=== PATIENT | female | born 1975 | race Caucasian/White ===

== ENCOUNTER → 2016-05-16 | Outpatient (CLI) | payer OTHER ==
--- NOTE | 2016-05-17 14:58 | Diagnostic Imaging Report ---
PA and lateral views of the chest Indication: Cough Findings: The lungs are clear. The heart size is normal. There is no effusion or pneumothorax The mediastinum and alanna appear unremarkable. Impression: Unremarkable study. Dictated by: Dictated on workstation # [id number]
== END ==
LOC: RAD 10:22
PROVIDERS: ATTEND Nurse Practitioner Family
DX: R05 Cough (principal); B96.0 Mycoplasma pneumoniae [M. pneumoniae] as the cause of diseases classified elsewhere
CPT/HCPCS: 71020

== ENCOUNTER → 2018-04-12 | Outpatient (CLI) | payer BC, OTHER ==
--- NOTE | 2018-04-12 18:13 | Diagnostic Imaging Report ---
EXAMINATION: Pelvic ultrasound. INDICATION: Abnormal uterine bleeding. COMPARISON: There are no prior studies available for comparison. FINDINGS: The uterus is nongravid and not enlarged measuring 7.8 x 5.0 x 4.4 cm. The endometrial lining is not abnormally thickened. There is a 2.4 x 1.9 x 1.9 cm area of slightly altered echogenicity in the uterine fundus. This finding is suspicious for a fibroid. Both ovaries were identified. There is good blood flow to each ovary, and there is no sign of torsion. There is a 1.3 x 1.3 x 1.3 cm benign-appearing cyst associated with the right ovary. There are a few subcentimeter follicles on the left ovary. There is no solid pelvic mass or free fluid collection evident. IMPRESSION: 1. There is no acute pelvic abnormality identified. 2. The endometrial lining does not seem to be thickened. 3. The 2.4 x 1.9 x 1.9 cm area of altered echogenicity within the uterine fundus is suspicious for a fibroid. 4. There is a small cyst associated with the right ovary. Dictated by: Dictated on workstation # [id number]
--- NOTE | 2018-04-15 09:02 | Diagnostic Imaging Report ---
Indication: Routine screening. Comparison is made with prior study from 01/20/2016 and 09/14/2014. 2-D and 3-D bilateral screening mammography was performed with CAD. Both breasts are heterogeneously dense, limiting the sensitivity of mammography. The parenchymal pattern is stable. No mass or malignant appearing microcalcifications are seen. The axillae are unremarkable. Impression: BI-RADS category 1. No mammographic features suspicious for malignancy are identified. ACR BI-RADS Category 1: Negative. Result letter will be mailed to the patient. Note: At least 10% of breast cancer is not imaged by mammography. Dictated by: Dictated on workstation # [id number]
== END ==
LOC: RAD 15:10
PROVIDERS: ATTEND Obstetrics & Gynecology
DX: Z12.31 Encounter for screening mammogram for malignant neoplasm of breast (principal); N83.201 Unspecified ovarian cyst, right side; N94.19 Other specified dyspareunia
CPT/HCPCS: 76830; 76856; 77067

== ENCOUNTER 2018-04-17 13:27 | Outpatient (RCR) | payer BC ==
[2018-03-29] MEDS: IRON SUCROSE 200 MG/10 ML (VENOFER) VIAL IV SCH (13:47)
[2018-03-29 14:50] VITALS: BP 109/75
[2018-04-03] MEDS: IRON SUCROSE 200 MG/10 ML (VENOFER) VIAL IV SCH (13:21)
[2018-04-03 13:22] VITALS: BP 107/80
[2018-04-12] MEDS: IRON SUCROSE 200 MG/10 ML (VENOFER) VIAL IV SCH (14:21)
[2018-04-12 17:42] VITALS: BP 108/78
[~2018-04-17] VITALS: Ht 165.1 cm; Wt 70.3 kg
[2018-04-17 13:30] VITALS: BP 127/81
[2018-04-17] MEDS: IRON SUCROSE 200 MG/10 ML (VENOFER) VIAL IV SCH (13:39)
[2018-05-02] MEDS ORDERED: LEVO150T6 PO (10:05)
[2018-05-02] MEDS ORDERED: DICY10CA12 PO (10:05)
[2018-05-02] MEDS ORDERED: NAPR-915 PO (10:05)
[2018-05-02] MEDS ORDERED: ESCI10TA55 PO (10:05)
[2018-05-02] MEDS ORDERED: ALPR1TAB7 PO (10:05)
[2018-05-02] MEDS ORDERED: MULT-884 PO (10:05)
[2018-05-09] MEDS ORDERED: ceFAZolin INJECTION 1,000 MG VIAL ONE (11:56)
[2018-05-09] MEDS ORDERED: metroNIDAZOLE 500MG/100ML IVPB 100 ML ONE (11:57)
[2018-05-09] MEDS ORDERED: NS (IVPB) 50 ML ONE (11:57)
[2018-05-09] MEDS ORDERED: SIME80TA16 PO (19:21)
[2018-05-09] MEDS ORDERED: HYDR-34 PO (19:21)
[2018-05-09] MEDS ORDERED: IBUP-844 PO (19:21)
[2018-05-09] MEDS ORDERED: DOCU100C37 PO (19:21)
== END 2018-06-27 | disposition home or self-care (01) ==
LOC: SDC 13:27
PROVIDERS: ATTEND Family Medicine
DX: D50.8 Other iron deficiency anemias (principal); R53.83 Other fatigue; N94.6 Dysmenorrhea, unspecified
CPT/HCPCS: 96365

== ENCOUNTER 2018-05-02 09:06 | Outpatient (CLI) | payer BC ==
[~2018-05-02] VITALS: Ht 165.1 cm; Wt 72.6 kg
[2018-05-02 09:18] VITALS: BP 112/80
[2018-05-02] MEDS ORDERED: ESCI10TA55 PO (10:05)
[2018-05-02] MEDS ORDERED: DICY10CA12 PO (10:05)
[2018-05-02] MEDS ORDERED: NAPR-915 PO (10:05)
[2018-05-02] MEDS ORDERED: MULT-884 PO (10:05)
[2018-05-02] MEDS ORDERED: ALPR1TAB7 PO (10:05)
[2018-05-02] MEDS ORDERED: LEVO150T6 PO (10:05)
[2018-05-02 10:06] LABS: BASOPHILS % (AUTO) 0 % (0-10); EOSINOPHILS % (AUTO) 0 % (0-10); HEMATOCRIT 41 % (35-52); HEMOGLOBIN 12.7 G/DL (11.5-16.0); LYMPHOCYTES # (AUTO) 1.8 X 10^3 (1.0-4.0); LYMPHOCYTES % (AUTO) 39 % (12-44); MEAN CORPUSCULAR HEMOGLOBIN 23 PG (25-34); MEAN CORPUSCULAR HGB CONC 31 G/DL (32-36); MEAN CORPUSCULAR VOLUME 75 FL (80-99); MEAN PLATELET VOLUME 11.5 FL (7.4-10.4); MONOCYTES # (AUTO) 0.5 X 10^3 (0.0-1.0); MONOCYTES % (AUTO) 11 % (0-12); NEUTROPHILS # (AUTO) 2.4 X 10^3 (1.8-7.8); NEUTROPHILS % (AUTO) 50 % (42-75); PLATELET COUNT 262 10^3/uL (130-400); RED BLOOD COUNT 5.46 10^6/uL (4.35-5.85); RED CELL DISTRIBUTION WIDTH 28.4 % (10.0-14.5); WHITE BLOOD COUNT 4.7 10^3/uL (4.3-11.0)
== END 2018-05-02 09:50 | disposition home or self-care (01) ==
LOC: PREOP 09:06
PROVIDERS: ATTEND Obstetrics & Gynecology
DX: Z01.812 Encounter for preprocedural laboratory examination (principal); Z11.2 Encounter for screening for other bacterial diseases; D25.9 Leiomyoma of uterus, unspecified; D62 Acute posthemorrhagic anemia
CPT/HCPCS: 36415; 85025; 86850; 86900; 86901; 87081

== ENCOUNTER 2018-05-09 10:59 | Day surgery (SDC) | payer BC ==
[~2018-05-09] VITALS: Ht 165.1 cm; Wt 72.6 kg
[~2018-05-09 10:59] MED LIST: ALPR1TAB7 PO; DICY10CA12 PO; ESCI10TA55 PO; LEVO150T6 PO; MULT-884 PO; NAPR-915 PO
--- OUTSIDE RECORDS SUMMARY | 2018-05-09 11:02 | XMS REPORT ---
Author Author JAZZ SEARS Organization [facility] Address [address] [place] [address] Care Team Providers Care Mineral Economist Name Role Phone JAZZ SEARS Unavailable PROBLEMS Type Condition ICD9-CM Code ROI45-CT Code Onset Dates Condition Status SNOMED Code Assessment Bronchitis J40 Apr, Active [id number] ALLERGIES Substance Reaction Event Type Date Status N.K.D.A. Unknown Non Drug Allergy Apr, Unknown SOCIAL HISTORY No smoking Hx information available PLAN OF CARE VITAL SIGNS Height 65 in 2016-04-21 Weight 172 lbs 2016-04-21 Heart Rate 98 bpm 2016-04-21 Respiratory Rate 18 2016-04-21 BMI 28.62 kg/m2 2016-04-21 Blood pressure systolic 134 mmHg 2016-04-21 Blood pressure diastolic 88 mmHg 2016-04-21 MEDICATIONS Medication Instructions Dosage Frequency Start Date End Date Duration Status Azithromycin 250 MG Orally Once a day 2 tablets on the first day, then 1 tablet daily for 4 days 24h Apr, Apr, 5 day(s) Active Cephalexin 500 MG Orally Twice a day 1 capsule 12h Active Levothyroxine Sodium 150 MCG Orally Once a day 1 tablet on an empty stomach in the morning 24h Active Promethazine-Codeine 6.25-10 MG/5ML Orally every 6 hrs 5 ml as needed 6h Apr, Apr, 5 days Active PredniSONE 20 MG Orally Once a day 2 tablet 24h Apr, Apr, 5 days Active RESULTS No Results PROCEDURES Procedure Date Ordered Related Diagnosis Body Site Office Visit, Est Pt., Level 3 Apr 21, 2016 IMMUNIZATIONS No Known Immunizations
--- OUTSIDE RECORDS SUMMARY | 2018-05-09 11:03 | XMS REPORT | Continuity of Care Document ---
Author Author [facility] Organization [facility] Address Unknown Phone Unavailable Allergies Active Description Code Type Severity Reaction Onset Reported/Identified Relationship to Patient Clinical Status Yes Penicillins [id number] Drug Allergy Unknown N/A 03/29/2018 Yes ciprofloxacin [id number] Drug Allergy Unknown N/A 05/02/2018 Medications There is no data. Problems Date Dx Coded Attending Type Code Diagnosis Diagnosed By 10/28/2014 MARI SIMON, MICHELLE Reynolds Ot 611.71 10/28/2014 MICHELLE GUERRA MD Ot V16.3 01/21/2016 ROBYN SIMON, DIANA Corbett Ot Z12.31 ENCNTR SCREEN MAMMOGRAM FOR MALIGNANT NE 05/16/2016 IDANA CARLSON MD Ot Z12.31 ENCNTR SCREEN MAMMOGRAM FOR MALIGNANT NE 05/16/2016 DIANA CARLSON MD Ot Z12.31 ENCNTR SCREEN MAMMOGRAM FOR MALIGNANT NE 05/17/2016 ANA M SHIELDS CUTTING AND SPLICING SUPERVISOR Ot B96.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 05/17/2016 ANA M SHIELDS CUTTING AND SPLICING SUPERVISOR Ot R05 COUGH 03/29/2018 DIANA CARLSON MD Ot Z12.31 ENCNTR SCREEN MAMMOGRAM FOR MALIGNANT NE 03/29/2018 ANA M SHIELDS CUTTING AND SPLICING SUPERVISOR Ot 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.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 03/29/2018 ANA M SHIELDS CUTTING AND SPLICING SUPERVISOR Ot R05 COUGH 04/03/2018 CARI MELCHOR MD Ot D50.8 OTHER IRON DEFICIENCY ANEMIAS 04/03/2018 CARI MELCHOR MD Ot N94.6 DYSMENORRHEA, UNSPECIFIED 04/03/2018 CARI MELCHOR MD Ot R53.83 OTHER FATIGUE 04/03/2018 CARI MELCHOR MD Ot D50.8 OTHER IRON DEFICIENCY ANEMIAS 04/03/2018 CARI MELCHOR MD Ot N94.6 DYSMENORRHEA, UNSPECIFIED 04/03/2018 CARI MELCHOR MD Ot R53.83 OTHER FATIGUE 04/12/2018 CARI MELCHOR MD, Ot D50.8 OTHER IRON DEFICIENCY ANEMIAS 04/12/2018 CARI MELCHOR MD, Ot N94.6 DYSMENORRHEA, UNSPECIFIED 04/12/2018 CARI MELCHOR MD, Ot R53.83 OTHER FATIGUE 04/17/2018 CARI MELCHOR MD, Ot D50.8 OTHER IRON DEFICIENCY ANEMIAS 04/17/2018 CARI MELCHOR MD, Ot N94.6 DYSMENORRHEA, UNSPECIFIED 04/17/2018 CARI MELCHOR MD, Ot R53.83 OTHER FATIGUE 04/25/2018 FENECH DINESH APARICIO S Ot N83.201 UNSPECIFIED OVARIAN CYST, RIGHT SIDE 04/25/2018 FENECH DINESH APARICIO S Ot N94.19 OTHER SPECIFIED DYSPAREUNIA 04/25/2018 DINESH BOLDEN DO S Ot Z12.31 ENCNTR SCREEN MAMMOGRAM FOR MALIGNANT NE 04/29/2018 CARI MELCHOR MD, Ot D50.8 OTHER IRON DEFICIENCY ANEMIAS 04/29/2018 CARI MELCHOR MD, Ot N94.6 DYSMENORRHEA, UNSPECIFIED 04/29/2018 CARI MELCHOR MD, Ot R53.83 OTHER FATIGUE Procedures There is no data. Results Test Result Range Thyroid Stimulating Hormone - 04/11/16 08:15 TSH 0.22 mIU/mL 0.32-5.00 Methicillin resistant Staphylococcus aureus (MRSA) screening culture - 09:39 Methicillin resistant Staphylococcus aureus (MRSA) screening culture NEG NRG Complete blood count (CBC) with automated white blood cell (WBC) differential - 05/02/18 09:45 Blood leukocytes automated count (number/volume) 4.7 10*3/uL 4.3-11.0 Blood erythrocytes automated count (number/volume) 5.46 10*6/uL 4.35-5.85 Venous blood hemoglobin measurement (mass/volume) 12.7 g/dL 11.5-16.0 Blood hematocrit (volume fraction) 41 % 35-52 Automated erythrocyte mean corpuscular volume 75 [foz_us] 80-99 Automated erythrocyte mean corpuscular hemoglobin (mass per erythrocyte) 23 pg 25-34 Automated erythrocyte mean corpuscular hemoglobin concentration measurement ( mass/volume) 31 g/dL 32-36 Automated erythrocyte distribution width ratio 28.4 % 10.0-14.5 Automated blood platelet count (count/volume) 262 10*3/uL 130-400 Automated blood platelet mean volume measurement 11.5 [foz_us] 7.4-10.4 Automated blood neutrophils/100 leukocytes 50 % 42-75 Automated blood lymphocytes/100 leukocytes 39 % 12-44 Blood monocytes/100 leukocytes 11 % 0-12 Automated blood eosinophils/100 leukocytes 0 % 0-10 Automated blood basophils/100 leukocytes 0 % 0-10 Blood neutrophils automated count (number/volume) 2.4 10*3 1.8-7.8 Blood lymphocytes automated count (number/volume) 1.8 10*3 1.0-4.0 Blood monocytes automated count (number/volume) 0.5 10*3 0.0-1.0 Automated eosinophil count 0.0 10*3/uL 0.0-0.3 Automated blood basophil count (count/volume) 0.0 10*3/uL 0.0-0.1 Blood type T Indirect antibody screen panel - 05/02/18 09:45 ABO+Rh group OP NRG Transfusion band number [id number] NRG Blood group antibody screen NEGATIVE NRG Encounters ACCT No. Visit Date/Time Discharge Status Pt. Type Provider Facility Loc./Unit Complaint [id number] 05/09/2018 09:00:00 05/09/2018 09:00:00 CAN Preadmit DINESH BOLDEN DO [facility] ABN UTERINE BLEEDING; FIBROID UTERUS,ANEMIA [id number] 05/02/2018 09:06:00 05/02/2018 09:50:00 DIS Outpatient DINESH BOLDEN DO [facility] PREOP ROBOTIC HYSTERECTOMY [id number] 04/17/2018 13:27:00 04/17/2018 23:59:59 CLS Outpatient CARI MELCHOR MD [facility] ANEMIAS D50.8,FATIGUE R53.83 [id number] 04/12/2018 15:10:00 04/12/2018 23:59:59 CLS Outpatient DINESH BOLDEN DO [facility] RAD SCREENING [id number] 05/16/2016 10:22:00 05/16/2016 23:59:59 CLS Outpatient ANA M SHIELDS [facility] RAD MYCOPLASMA,COUGH [id number] 01/20/2016 15:02:00 01/20/2016 23:59:59 CLS Outpatient DIANA CARLSON MD [facility] RAD SCREENING [id number] 09/14/2014 14:20:00 09/14/2014 23:59:59 CLS Outpatient MICHLELE GUERRA MD [facility] RAD [id number] 04/11/2016 10:14:00 04/11/2016 23:59:00 DIS Outpatient DIANA CARLSON
[2018-05-09] MEDS ORDERED: LACTATED RINGERS 1,000 ML IV ONE (11:04)
[2018-05-09] MEDS ORDERED: FAMOTIDINE 20MG/2ML IV (PEPCID) IV ONE (11:15)
[2018-05-09] MEDS ORDERED: metroNIDAZOLE 500MG/100ML IVPB 100 ML IV ONE (11:15)
[2018-05-09] MEDS ORDERED: MIDAZOLAM 2 MG/2 ML (VERSED) VIAL IV ONE (11:15)
[2018-05-09] MEDS ORDERED: ceFAZolin INJECTION 1,000 MG in NS (IVPB) 50 ML IV ONE (11:15)
[2018-05-09] MEDS: LACTATED RINGERS 1,000 ML IV PRN ×2 (12:20→14:35)
[2018-05-09] MEDS ORDERED: BUPIVACAINE 0.25% 30 ML (SENSORCAINE) VIAL ONE (12:48)
--- NOTE | 2018-05-09 12:56 | Progress Note-Pre Operative ---
Pre-Operative Progress Note H&P Reviewed The H&P was reviewed, patient examined and no changes noted. Date Seen by Provider: May 09, 2018 Time Seen by Provider: 12:55 Date H&P Reviewed: May 09, 2018 Time H&P Reviewed: 12:55 Pre-Operative Diagnosis: AUB Fibroid uterus DINESH BOLDEN DO May 09, 2018 12:56 pm
[2018-05-09] MEDS ORDERED: proPOfol 200 MG/20 ML (DIPRIVAN) VIAL IV ONE (13:00)
[2018-05-09] MEDS ORDERED: LIDOCAINE PF 2% 5 ML (XYLOCAINE) VIAL ONE (13:00)
[2018-05-09] MEDS ORDERED: ROCURONIUM 10 MG/ML 5 ML SYRINGE IV ONE (13:00)
[2018-05-09] MEDS ORDERED: SEVOFLURANE (ULTANE) 15 ML INHAL SOLN ONE ×5 (13:00→14:47)
[2018-05-09] MEDS ORDERED: MIDAZOLAM 2 MG/2 ML (VERSED) VIAL ONE (13:01)
[2018-05-09] MEDS ORDERED: fentaNYL INJECTION 100 MCG/2 ML AMP ONE (13:01)
[2018-05-09] MEDS ORDERED: DEXAMETHASONE 10 MG/ML (DECADRON) 1 ML VIAL ONE (13:08)
[2018-05-09] MEDS ORDERED: ONDANSETRON 4 MG/2 ML (SDV) Z0FRAN ONE (13:08)
[2018-05-09] MEDS ORDERED: DOCUSATE SODIUM 100 MG (COLACE) CAP PO PRN (13:45)
[2018-05-09] MEDS ORDERED: SIMETHICONE 80 MG (MYLICON) CHEW PO PRN (13:45)
[2018-05-09] MEDS ORDERED: ANTACID SUSP 30 ML UDC (MYLANTA) PO PRN (13:45)
[2018-05-09] MEDS ORDERED: HYDROmorphone 2 MG/ML VIAL (DILAUDID) IV PRN (13:45)
[2018-05-09] MEDS ORDERED: ZOLPIDEM 5 MG (AMBIEN) TAB PO PRN (13:45)
[2018-05-09] MEDS ORDERED: CHLORASEPTIC LOZENGE MM PRN (13:45)
[2018-05-09] MEDS ORDERED: ONDANSETRON 4 MG/2 ML (SDV) Z0FRAN IV PRN (13:45)
[2018-05-09] MEDS ORDERED: NEOSTIGMINE 1 MG/ML 5 ML SYRINGE ONE (14:46)
[2018-05-09] MEDS ORDERED: GLYCOPYRROLATE 0.2 MG/ML (ROBINUL) 2 ML VIAL ONE (14:46)
[2018-05-09] MEDS ORDERED: RT-ALBUTEROL SULF 2.5 MG/3 ML PRE-MIX VIAL ONE (14:58)
[2018-05-09] MEDS ORDERED: RT-ALBUTEROL SULF 2.5 MG/3 ML PRE-MIX VIAL INH ONE (15:15)
[2018-05-09] MEDS ORDERED: morphine INJ 10 MG/ML 1ML (SYR OR VIAL) IVP ONE (15:15)
[2018-05-09] MEDS ORDERED: PROMETHAZINE INJ 25 MG/ML (PHENERGAN) AMP IVP ONE (15:15)
[2018-05-09] MEDS ORDERED: ONDANSETRON 4 MG/2 ML (SDV) Z0FRAN IVP PRN (15:15)
[2018-05-09] MEDS ORDERED: HYDROmorphone 2 MG/ML VIAL (DILAUDID) IV ONE (15:15)
[2018-05-09] MEDS ORDERED: MEPERIDINE (DEMEROL) INJ 50 MG/ML IVP ONE (15:15)
[2018-05-09] MEDS: KETOROLAC 30 MG/ML VIAL IV PRN ×2 (15:17→21:02)
[2018-05-09 16:05] VITALS: BP 131/73
[2018-05-09] MEDS: LACTATED RINGERS 1,000 ML IV SCH ×2 (18:14→21:32)
--- NOTE | 2018-05-09 19:15 | Operative Report ---
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 She was placed in the dorsal lithotomy position, prepped and draped in normal sterile fashion. A timeout was performed. A Person catheter was placed using sterile technique. A weighted speculum was inserted into the patient's vagina. A right angle retractor was used to visualize the cervix, which was grasped at 12 o'clock position using a long Allis clamp. I then placed an #0 Vicryl suture to the anterior lip of the cervix and removed the Allis clamp. I used the suture as my retraction point. I then gently sound the uterine cavity depth, which was found to 8 cm. I then selected an 8 cm Alberta uterine manipulator tip and a 3.5 cm colpotomy ring. I assembled the Alberta manipulator and advanced the manipulator tip into the uterus deployed into the balloon and advanced the colpotomy ring around the vaginal fornix. Excellent uterine manipulation is appreciated on bimanual examination after this was done. I then performed a change of gloves. I took my attention to the abdomen where infraumbilically I infiltrated this area using 0.25% Marcaine, making 8 mm incision and directed Veress needle through the incision until intraperitoneal placement was confirmed using a saline drop test. I then proceeded with insufflation using CO2 gas and opening pressure of 4 mmHg was note. I proceeded to maximum pressure of 15 mmHg, at which point I removed the Veress needle and introduced an 8 mm blunt da Carina camera trocar. Once this was in place, I am able to confirm a trocar placement using the da Carina laparoscope. I then had the patient placed in steep Trendelenburg after briefly scanning the upper abdominal anatomy which was found to be normal. Once in steep Trendelenburg, I am able to visualize all of the anatomy necessary to proceed with the procedure as planned. I then placed two lateral trocars approximately 8 to 10 cm lateral to my infraumbilical trocar. The skin was infiltrated using 0.25% Marcaine, 8 mm incisions were made and the trocars were both placed under direct visualization of the laparoscope. Once the trocars were in place, I bring in the da Carina robot and docked in the appropriate fashion placing the monopolar cate in the right hand and a da Carina vessel sealer in the left hand. I then took my place at the [employer] operative console and performed the following dissection bilaterally starting at the uteroovarian ligament, bipolar cauterized and transected using the vessel sealer. I then created a window in the mesosalpinx using the monopolar cate and took this laterally using the vessel sealer amputating the fallopian tube from its blood supply. I then grasped the round ligament, bipolar cauterized and transected using the vessel sealer and then I am able to grasp the entire broad ligament, bipolar cauterized and transected using the vessel sealer down to the level of the lower uterine segment, at which point I the anterior and posterior leaflets of the broad ligament. The anterior leaflet dissection was taken down to the anterior vaginal fornix. The posterior leaflet was taken down to the posterior vaginal fornix. This allows me to skeletonize the uterine vessels laterally and bipolar cauterized and I then transected them using the vessel sealer as well. I then created a window in the anterior vaginal fornix using monopolar cate and took this circumferentially around the vaginal fornix amputating the cervix away from the vagina. The entire specimen was then removed through the vagina. I then closed the lateral vaginal apices of the vaginal cuff using 2-0 Vicryl suture in a [id number] fashion, colposuspending them to the uterosacral ligaments. I then closed the remainder of the vaginal cuff using 2-0 V-Loc in a running fashion, after which there was no active bleeding noted from any of my dissection planes. I then undocked the da Carina robot and proceeded with the remainder of the case laparoscopically. I then copiously irrigated the pelvis with normal saline. Once again, there was no active bleeding noted from any of my dissection planes. I then placed FloSeal hemostatic agent over all my planes of dissection and I had the patient taken out of steep Trendelenburg. The lateral trocars were then removed under direct visualization of the laparoscope. The infraumbilical trocar was left in place to release insufflation and to introduce 10 mL of 0.25% Marcaine for postoperative pain management. I then removed this trocar as well. The skin was then reapproximated using 4-0 Monocryl in simple interrupted fashion. Skin Affix was applied over the incisions and Band-Aids were placed over these. A Person catheter was left in place. All other instruments were removed from the patient. Lap and sponge counts were correct at the end of the procedure and instrument count was correct as well. Two grams of Ancef and 500 mg of Flagyl were given preoperatively for infection prophylaxis. The patient tolerated the procedure well and sent to recovery in stable condition. Findings of the Procedure Diffuse peritoneal endometriosis implants that appeared dense Allergies and Home Medications Allergies Coded Allergies: Penicillins (Verified Allergy, Unknown, 03/29/18) PATIENT STATES SHE WAS ALLERGIC TO PCN A YOUNG CHILD, STATES SHE TAKES AMOXICILLIN WITH NO COMPLAINTS. ciprofloxacin (Verified Allergy, Unknown, 05/02/18) Home Medications Alprazolam 1 Mg Tablet, 1 MG PO HS PRN for SLEEP, (Reported) Dicyclomine HCl 10 Mg Capsule, 10 MG PO TID PRN for STOMACH UPSET, (Reported) Escitalopram Oxalate 10 Mg Tablet, 10 MG PO DAILY, (Reported) Levothyroxine Sodium 150 Mcg Tablet, 150 MCG PO DAILY, (Reported) Multivits,Ca,Minerals/Iron/FA 1 Each Tablet, 1 EACH PO DAILY, (Reported) Naproxen 500 Mg Tablet, 500 MG PO BID PRN for PAIN-MILD TO MODERATE, (Reported) Patient Home Medication List Home Medication List Reviewed: Yes DINESH BOLDEN DO May 09, 2018 7:15 pm
--- NOTE | 2018-05-09 19:20 | Discharge Inst-Women's Service ---
Discharge Inst-Women's Serv Depart Medication/Instructions New, Converted or Re-Newed RX: RX on Chart Consults/Follow Up Additional Follow Up: Yes Orders/Referrals Ellie Rey in 7-10 days, Dr. Castellano in 8 weeks Activity Activity: Activity as Tolerated NO SMOKING: NO SMOKING Nothing Inside Vagina: No Douching, No Spencer, No Tampons Diet Discharge Diet: No Restrictions Symptoms to Report to : Bleeding Excessive, Pain Increased, Fever Over 101 Degrees F, Vaginal Bleeding Increase, Questions/Concerns For Any Problems or Questions: Contact Your Physician Skin/Wound Care Infection Signs and Symptoms: Increased Redness, Foul Odor of Wound, Increased Drainage, Skin Itchy or Has a Rash, Increased Swelling, Temperature Above 101 F Operative Area Clean and Dry: Keep Incision Clean/Dry Stitches/[place]/Dermabond: Dermabond, Care of Stitches Bathing Instructions: DINESH Atkins DO May 09, 2018 7:20 pm
[2018-05-09] MEDS ORDERED: HYDR-34 PO (19:21)
[2018-05-09] MEDS ORDERED: SIME80TA16 PO (19:21)
[2018-05-09] MEDS ORDERED: IBUP-844 PO (19:21)
[2018-05-09] MEDS ORDERED: DOCU100C37 PO (19:21)
[2018-05-09 20:00] VITALS: BP 122/70
[2018-05-09] MEDS ORDERED: FLU QUADRIvalent (5+ YOA) 2018-2019 (AFLURIA) 0.5 ML IM ONE (20:15)
[2018-05-10 00:16] VITALS: BP 109/63
[2018-05-10] MEDS: HYDROcodone/APAP 7.5 MG/325 MG (LORTAB, LORCET PLUS) TABLET PO PRN ×2 (00:16→10:01)
[2018-05-10] MEDS ORDERED: IBUPROFEN 600 MG (MOTRIN) TAB PO ONE (04:47)
[2018-05-10 05:00] VITALS: BP 97/56
[2018-05-10 07:30] VITALS: BP 114/76
[2018-05-10] MEDS ORDERED: IBUPROFEN 600 MG (MOTRIN) TAB PO PRN (12:00)
== END 2018-05-10 11:00 | disposition home or self-care (01) ==
LOC: SDC 10:59 → WS 15:50 → SDC 05-10 11:00
PROVIDERS: ATTEND Obstetrics & Gynecology
DX: N87.0 Mild cervical dysplasia (principal); N80.3 Endometriosis of pelvic peritoneum; D50.0 Iron deficiency anemia secondary to blood loss (chronic); D25.1 Intramural leiomyoma of uterus; N80.0 Endometriosis of uterus; K21.9 Gastro-esophageal reflux disease without esophagitis; Z88.0 Allergy status to penicillin; Z88.1 Allergy status to other antibiotic agents; Z79.899 Other long term (current) drug therapy
CPT/HCPCS: 84703; 86850; 86900; 86901; 88307; 94664

== ENCOUNTER 2018-08-02 10:31 | Outpatient (RCR) | payer BC ==
[2018-07-24 14:25] VITALS: BP 139/86
[~2018-08-02] VITALS: Ht 165.1 cm; Wt 72.6 kg
[2018-08-02 10:30] VITALS: BP 118/69
[~2018-08-02 10:31] MED LIST changes: +DOCU100C37 PO; +HYDR-34 PO; +IBUP-844 PO; +IRON SUCROSE 200 MG/10 ML (VENOFER) VIAL IV ONE; +SIME80TA16 PO
[2018-08-02] MEDS ORDERED: IRON SUCROSE 200 MG/10 ML (VENOFER) VIAL IV ONE (10:39)
[2018-08-02] MEDS ORDERED: IRON SUCROSE 200 MG/10 ML (VENOFER) VIAL IV SCH (11:00)
== END 2018-10-22 | disposition home or self-care (01) ==
LOC: SDC 10:31
PROVIDERS: ATTEND Family Medicine
DX: D50.8 Other iron deficiency anemias (principal); R53.83 Other fatigue; N94.6 Dysmenorrhea, unspecified
CPT/HCPCS: 96365

== ENCOUNTER → 2020-01-21 | Outpatient (CLI) | payer BC ==
[~2020-01-21] MED LIST changes: -IRON SUCROSE 200 MG/10 ML (VENOFER) VIAL IV ONE
--- NOTE | 2020-01-22 07:50 | NUR ---
Notified patient of her positive COVID test. She verbalized understanding quarantine.
== END ==
LOC: LABNPT 08:34
PROVIDERS: ATTEND Family Medicine
DX: U07.1 COVID-19 (principal)
CPT/HCPCS: 87635